=== PATIENT | male | born 1965 | race Caucasian/White ===

== ENCOUNTER 2016-05-29 03:54 | Observation (INO) | payer OTHER ==
[~2016-05-29] VITALS: Ht 180.3 cm; Wt 87.5 kg
--- NOTE | 2016-05-29 03:59 | ED CARDIAC/CP/PALPITATIONS ---
History of Present Illness General Chief Complaint: Chest Pain Stated Complaint: " CP AND RT SHOULDER PAIN SINCE 0230AM" Source: patient Exam Limitations: no limitations Vital Signs & Intake/Output Vital Signs & Intake/Output Vital Signs Date Time Temp Pulse Resp B/P Pulse O2 O2 Flow FiO2 Ox Delivery Rate 05/29 0404 98 Room Air 05/29 0401 97.3 67 18 184/98 98 Room Air Allergies Coded Allergies: NO KNOWN ALLERGIES (05/29/16) Reconcile Medications No Known Home Medications Triage Nurses Notes Reviewed? yes Onset: Abrupt Duration: hour(s): Timing: no prior history Quality/Severity: moderate Location: central, shoulder Radiation: right shoulder Activities at Onset: sleep Prior Chest Pain/Card Workup: no prior chest pain Modifying Factors: Improves With: rest. Aspirin Today: 325 mg x 1, provided at home Associated Symptoms: dizziness HPI: 50 yo gentleman presents with chest pain. He notes that he awoke at 2:30 am with 5/10 substernal chest burning that radiated to his right arm with mild dizziness. Upon arrival to the ED, his chest pain was 4/10. He has no shortness of breath, chills, nausea, vomiting, diarrhea, wheezing. He is otherwise well. Past History Travel History Traveled to [place] past 21 day No Medical History Any Pertinent Medical History? see below for history History of MRSA: No History of VRE: No History of CDIFF: No Surgical History Surgical History: none Psychosocial History Who do you live with Spouse Services at Home None What is your primary language Palauan Family History Comment: brother with [place] at age 62 Hx Contributory? Yes Review of Systems Review of Systems Constitutional: Reports: no symptoms. EENTM: Reports: no symptoms. Respiratory: Reports: no symptoms. Cardiovascular: Reports: no symptoms. GI: Reports: no symptoms. Genitourinary: Reports: no symptoms. Musculoskeletal: Reports: no symptoms. Skin: Reports: no symptoms. Neurological/Psychological: Reports: no symptoms. Hematologic/Endocrine: Reports: no symptoms. Immunologic/Allergic: Reports: no symptoms. All Other Systems: Reviewed and Negative Physical Exam Physical Exam General Appearance: well developed/nourished, mild distress Head: atraumatic, normal appearance Eyes: Bilateral: normal appearance. Ears, Nose, Throat: normal pharynx Neck: normal inspection, supple, full range of motion Respiratory: normal breath sounds, chest non-tender, no respiratory distress, quiet respiration, lungs clear Cardiovascular: regular rate/rhythm Gastrointestinal: normal bowel sounds, soft, non-tender, no organomegaly Back: normal inspection, normal range of motion Extremities: normal inspection Neurologic/Psych: no motor/sensory deficits, awake, alert, oriented x 3 Skin: intact, normal color, warm/dry Core Measures ACS in differential dx? Yes Severe Sepsis Present: No Septic Shock Present: No Progress Differential Diagnosis: AMI, musculoskeletal pain, pneumonia, pulmonary embolism , unstable angina Plan of Care: Orders Procedure Date/time Status Patient Data 05/29 543 Active EKG 05/29 456 Active TROPONIN LEVEL 05/29 355 Complete PARTIAL THROMBOPLASTIN TIME 05/29 355 Complete PROTHROMBIN TIME 05/29 355 Complete D-DIMER 05/29 355 Complete COMPREHENSIVE METABOLIC PANEL 05/29 355 Complete CBC WITHOUT DIFFERENTIAL 05/29 355 Complete B-TYPE NATRIURETIC PEP (BNP) 05/29 355 Complete EKG 05/29 355 Active EKG 05/29 354 Active Laboratory Tests 05/29/16 0400: Anion Gap 14, Estimated GFR > 60, BUN/Creatinine Ratio 14.0, Glucose 99, Calcium 9.3, Total Bilirubin 0.7, AST 32, ALT 71, Alkaline Phosphatase 81, Troponin I < 0.01, Awn-Y-Kjibagmngho Pept 63.3, Total Protein 7.3, Albumin 4.3, Globulin 3.0, Albumin/Globulin Ratio 1.4, PT 10.0, INR 0.95, APTT 30, D-Dimer < 200, CBC w Diff NO MAN DIFF REQ, RBC 5.27, MCV 88.3, MCH 29.7, RDW 12.8, MPV 7.4, Gran % 58.4, Lymphocytes % 31.6, Monocytes % 7.4, Eosinophils % 2.1, Basophils % 0.5, Absolute Granulocytes 4.3, Absolute Lymphocytes 2.3, Absolute Monocytes 0.5, Absolute Eosinophils 0.2, Absolute Basophils 0, PUBS MCHC 33.6 Diagnostic Imaging: Viewed by Me: Radiology Read. Discussed w/RAD: Radiology Read. CXR Impression: no acute abnormality, no infiltrates, normal size heart, normal mediastinum Initial ED EKG: normal axis, normal intervals, normal p-waves, normal QRS complex, normal sinus rhythm Repeat EKG: unchanged Comments: PATIENT: FRANKIE LEROY PRESENT AGE: 50 PATIENT ACCOUNT NO: [id number] : 63 LOCATION: [facility] ORDERING PHYSICIAN: MARY DUNLAP MD SERVICE DATE: 05/29/16 EXAM TYPE: RAD - XRY-PORTABLE CHEST XRAY EXAMINATION: XR PORTABLE CHEST CLINICAL INFORMATION: Chest pain COMPARISON: None. TECHNIQUE: AP portable upright view of the chest FINDINGS: Lung volumes are low. There is bibasilar atelectasis. No consolidation, pneumothorax, or pleural effusion. Cardiac and mediastinal contours are unremarkable. Pulmonary vasculature is unremarkable. Osseous structures are unremarkable. IMPRESSION: No acute cardiopulmonary findings DICTATED BY: SAMUEL RODRIGUEZ MD DATE/TIME DICTATED:05/29/16428 JOGGER OPERATOR:ELIEZER DATE/TIME TRANSCRIBED:05/29/16428 CONFIDENTIAL, DO NOT COPY WITHOUT APPROPRIATE AUTHORIZATION. <Electronically signed in Other Vendor System> SIGNED BY: SAMUEL RODRIGUEZ MD 05/29/16 0434 Departure Departure Disposition: STILL A PATIENT Condition: Stable Clinical Impression Primary Impression: Chest pain Referrals: GIGI ASHFORD DO (PCP/Family) Departure Forms: Customer Survey General Discharge Information Prescriptions: Current Visit Scripts No Known Home Medications Comments 05/29/16, 5:26am... discussed with dr. malhotra... pt feeling better after nitro... merits obs, rule out... pt of dr. ashford... pt to go to hospitalist service. Observation Note Spoke With: ARLIN SIERRA,[facility] Physician Advisor Notified: PIPE PANDA DO Place Patient In: Non-ED OBS Care Area Rationale for Observation: My rational for observation is as follows . pt with nitro responsive chest pain, +family history... merits rule out, cards eval, monitoring. Critical Care Note Critical Care Note Critical Care Time: 30-74 min
--- NOTE | 2016-05-29 04:03 | NUR ---
TRIAGE: PATIENT TO ER FROM HOME REPORTS WOKE FROM SLEEP W/ CHEST BURNING SINCE 229, REPORTS "FEELS LIKE MY THROAT IS TIGHT," AIRWAY PATENT, SPEAKING W/ CLEAR SPEECH. NO ACUTE DISTRESS NOTED. BP IN TRIAGE: 184/98
--- NOTE | 2016-05-29 04:04 | NUR ---
IV EST #20 RIGHT AC BY BIPIN PEREZ. BLOODWORK OBTAINED AND SENT TO LAB (LAV, SST, BLUE, [facility]). EKG IN PROGRESS.
[2016-05-29 04:16] LABS: ABSOLUTE BASOPHIL COUNT 0 /CUMM (0.0-0.2); ABSOLUTE EOSINOPHIL COUNT 0.2 /CUMM (0.0-0.7); ABSOLUTE GRANULOCYTE CT 4.3 /CUMM (1.4-6.5); ABSOLUTE LYMPH COUNT 2.3 /CUMM (1.2-3.4); ABSOLUTE MONOCYTE COUNT 0.5 /CUMM (0.10-0.60); BASOPHIL % 0.5 % (0.0-2.0); EOSINOPHIL % 2.1 % (0-5); GRANULOCYTE % 58.4 % (42.2-75.2); HEMATOCRIT 46.6 % (42-52); MEAN CORPUSCULAR HGB 29.7 PG (27.0-31.0); MEAN CORPUSCULAR HGB CONC 33.6 G/DL (33.0-37.0); MEAN CORPUSCULAR VOLUME 88.3 FL (80.0-94.0); MEAN PLATELET VOLUME 7.4 FL (7.4-10.4); PLATELET COUNT 247 /CUMM (130-400); RBC DISTRIBUTION WIDTH 12.8 % (11.5-14.5); RED BLOOD CELL CT 5.27 /CUMM (4.70-6.10); WHITE BLOOD CELL COUNT 7.4 /CUMM (4.8-10.8)
[2016-05-29 04:27] LABS: PTT 30 SEC (25-37)
--- NOTE | 2016-05-29 04:34 | RADIOLOGY REPORT ---
EXAMINATION: XR PORTABLE CHEST CLINICAL INFORMATION: Chest pain COMPARISON: None. TECHNIQUE: AP portable upright view of the chest FINDINGS: Lung volumes are low. There is bibasilar atelectasis. No consolidation, pneumothorax, or pleural effusion. Cardiac and mediastinal contours are unremarkable. Pulmonary vasculature is unremarkable. Osseous structures are unremarkable. IMPRESSION: No acute cardiopulmonary findings
--- NOTE | 2016-05-29 04:44 | NUR ---
PT MEDICATED WITH 975MG TYLENOLAND 0.4MG NITROSTAT SL PER EMAR FOR CP AND BUENO.
--- NOTE | 2016-05-29 05:26 | NUR ---
PT MEDICATED WITH 0.4MG NITROSTAT AND 30MG IV TORADOL FOR PAIN AND CP PER EMAR.
--- NOTE | 2016-05-29 05:49 | History & Physical ---
LARRY SIERRA,[facility] 05/29/16 0546: General Information and HPI MD Statement: I have seen and personally examined FRANKIE LEROY and documented this H&P. The patient is a 50 year old M who presented with a patient stated chief complaint of Chest pain. Source of Information: patient Exam Limitations: no limitations History of Present Illness: This is a 50-year-old gentleman with no known significant past medical history, on no home medications who presents to the [place] ED with complaints of chest pain. Patient states that he woke au pair around 3 AM study feeling chest pain which he described as substernal burning chest pain that radiated to his right arm. Patient rated his pain as a 5 out of 10 and reports taking 2 tablets of ibuprofen with minimal relief. Patient states that his chest pain was not releived or worsened by any exertion. Pt does deny any associated diaphoresis with this chest pain, dyspnea, palpitation, or dizziness. Patient does endorse an intermittent history of heartburn but denies it happening frequently. Of note, early in the morning patient states that he was using his snowblower clearing the light snow outisde, but he does not endorse any exertional chest pain while doing that activity or or even after completion. At the ED patient receive nitroglycerin sublingual tablets which gave him some relief. Pertinent negatives include no: fever, chills, cough, recent infection, leg pain , recent chest trauma, or use of illicit, smoking history, or remarkable cardiac family history. Allergies/Medications Allergies: Coded Allergies: NO KNOWN ALLERGIES (05/29/16) Past History Travel History Traveled to [place] past 21 day No Medical History Neurological: NONE EENT: NONE Cardiovascular: NONE Respiratory: NONE Gastrointestinal: NONE Hepatic: NONE Renal: NONE Musculoskeletal: NONE Psychiatric: NONE Endocrine: NONE Blood Disorders: NONE Cancer(s): NONE HORSEBACK RIDING INSTRUCTOR/Reproductive: NONE History of MRSA: No History of VRE: No History of CDIFF: No Surgical History Surgical History: none Past Family/Social History Psychosocial History Services at Home: None Review of Systems Review of Systems Constitutional: Denies: diaphoresis, fever, malaise, weakness. EENTM: Denies: blurred vision, double vision, visual changes, eye pain. Cardiovascular: Reports: chest pain. Denies: edema, orthopena, palpitations. Respiratory: Denies: cough, hemoptysis, orthopnea. GI: Denies: constipation, diarrhea, distention, bowel incontinence. Genitourinary: Denies: dysuria, frequency, hematuria, hesitation. Musculoskeletal: Denies: joint pain, muscle pain. Skin: Denies: dryness, jaundice, lesions. Neurological/Psychological: Denies: dementia, emotional problems, headache, numbness, paresthesia. Hematologic/Endocrine: Reports: no symptoms. Immunologic/Allergic: Reports: no symptoms. Exam & Diagnostic Data Last 24 Hrs of Vital Signs/I&O Vital Signs Date Time Temp Pulse Resp B/P Pulse O2 O2 Flow FiO2 Ox Delivery Rate 05/29 2122 76 136/80 05/29 2027 Room Air Room Air 05/29 1619 97.9 60 17 109/66 94 Room Air 05/29 1420 98.4 60 16 120/74 95 Room Air 05/29 1246 97.7 66 15 128/77 94 Room Air Room Air 05/29 1113 97.2 60 20 95 Room Air 05/29 1058 57 142/83 05/29 1048 57 15 142/83 97 Room Air Room Air 05/29 1028 78 20 122/70 98 Room Air 05/29 1026 97.8 58 20 122/70 98 Room Air 05/29 0546 98.6 64 18 113/72 96 Room Air 05/29 0404 98 Room Air 05/29 0401 97.3 67 18 184/98 98 Room Air Intake & Output 05/29 1600 05/29 0800 05/29 0000 Intake Total Output Total Balance Patient 87.543 kg 87.543 kg Weight Physical Exam General Appearance Alert, Oriented X3, Cooperative, No Acute Distress Skin No Rashes, No Breakdown, No Significant Lesion HEENT Atraumatic, PERRLA, EOMI Neck Supple, No JVD, No thryomegaly, +2 Carotid Pulse wo Bruit, No LAD Lymphatic Cervical nl Cardiovascular Regular Rate, Normal S1, Normal S2, No Murmurs, Gallops Lungs Clear to Auscultation, Normal Air Movement Abdomen Normal Bowel Sounds, Soft, No Tenderness, No Hepatospenomegaly, No Masses Neurological Normal Gait, Normal Speech, Strength at 5/5 X4 Ext, Sensation Intact Extremities No Clubbing, No Cyanosis, No Edema, Normal Pulses Vascular Normal Pulses, Pulses Symmetrical Assessment/Plan Assessment: This is a 50-year-old male with no significant past medical history and no cardiovascular risk factors presents with complaints of substernal burning chest pain. Considering that the patient has minimal to no risk of cardiovascular events, couple with negative initial troponins and unremarkable EKG, this is most likely chest pain of noncardiac origin. However completely need to rule out ACS. She would definitely benefit from a stress test which will be done on an outpatient basis. Patient is hemodynamically stable, saturating well and does not show any signs suggestive of pulmonary causes such as PE being responsible for his chest pain. She'll be noted that patient does endorse an intermittent history of heartburn, which might explain the burning nature of his chest pain. Impression #Chest pain Plan * Admit to telemetry for 23 hour monitoring * Will trend serial troponins and EKG to rule out ACS * Echocardiogram in the morning * Will obtain cardiology consult * Will obtain fasting lipid panel * Omeprazole by mouth as needed for heartburn As Ranked By This Provider Problem List: 1. Chest pain Core Measures/Miscellaneous Acute Coronary Syndrome ACS Diagnosis: No Cerebrovascular Accident CVA/TIA Diagnosis: No Congestive Heart Failure CHF Diagnosis: No Venous Thromboembolism VTE Risk Factors: Age > 40 VTE Prophylaxis Ordered Inpt: Mechanical (ALPS/TEDS) No Mech VTE prophylaxis d/t: No contraindications No VTE Pharm Prophylaxis d/t: No contraindications VTE Diagnosis: No VTE Type: NONE VTE Confirmed by (Test): NONE Severe Sepsis Severe Sepsis Present: No Septic Shock Septic Shock Present: No Miscellaneous Documentation Attending Case Discussed With: CLOVER SIERRA,JAY Primary Care Physician: GIGI BENSON DO Patient sees these Specialists NONE Level of Patient Care: Telemetry MARIO FLOYD 05/29/16 0612: General Information and HPI Allergies/Medications Home Med list Omeprazole 40 MG CAPSULE.DR Plunkett CAP PO DAILY heartburn Resident Review Statement Resident Statement: examined this patient, discussed with sports management internship, agreed with sports management internship, reviewed EMR data (avail) Other Findings: This is a 50-year-old gentleman with no significant past medical history, on no home medications who presents to the hospital with substernal chest pain which radiated to his right arm. Patient reports experiencing reflux symptoms but very rarely. Denies headache, nausea, vomiting, dizziness, lightheadedness, shortness of breath, palpitation, abdominal pain, urinary symptoms. Of note, the patient mentions that he used snowblower machine couple of days ago and might have s pulled his right-sided chest muscles while using the machine. His last workup with his PCP was 3 years ago. Patient denies tobacco, EtOH, illicit drug use. I confirmed with patient, he denies taking any aspirin today. He took ibuprofen for pain. His pain subsided after receiving nitroglycerin in the ED. Vital signs on admission: Temperature 97.3, pulse rate 67, respiratory rate 18, blood pressure 184/98>>>113/72, oxygen saturation 98% on room air. Pertinent physical exam at the time of admission: NAD, AAO 3, head atraumatic, normocephalic, PERRLA, EOMI, normal pharynx. Neck: Supple, no JVD, no LAD. Cardiovascular: S1-S2 auscultated, no murmurs. Lungs: CTA BL. Abdomen: Normal bowel sounds, Soft, nontender, nondistended. No lower extremity edema. Pulses normal and symmetrical. Normal reflexes. Neurology exam nonfocal. Pertinent lab data on admission: CBC unremarkable, BEP unremarkable, troponin negative. D-dimer negative. Pertinent imaging: Normal chest x-ray. EKG: Sinus rhythm, rate 78, no ST-T wave abnormalities. QTC 438 Problem list/plan: #Chest pain: * Rule out ACS * ASUNCION score: Patient less than 65-year-old, does not have to use factors for CAD, does not have known history of CAD, has not used aspirin in the past 7 days , did not experience severe angina more than twice within the past 24 hours, EKG did not reveal ST deviation, cardiac marker so far negative therefore patient has ASUNCION score of 0. * monitoring and evaluation advisor * Vitals per protocol * Oxygen supplementation as needed * Adequate pain management * Nitrates his chest pain persists(it was given in the ED) * Aspirin 3251(patient is not on aspirin at home and did not take any aspirin today) * Continue aspirin 81 mg daily from tomorrow * Statin, beta robina * Lipid panel, TFT, hemoglobin A1c * Omeprazole for reflux symptoms * Echocardiogram * Cardiology consult #DVT prophylaxis #Patient is full code JAY SIERRA,CLOVER 05/29/16 1302: Attending Review Statement Attending Statement Attending Statement: examined this patient, discuss w/resident/PA/TERRAZZO WORKER HELPER, agreed w/resident/PA/TERRAZZO WORKER HELPER, discussed with family, reviewed EMR data (avail) Attending Assessment/Plan: Patient seen and examined in the emergency room. Plan of care discussed with patient's at the bedside. Case discussed with the admitting resident. In summary this is a 50-year-old gentleman with no significant past medical history, on no home medications who presents to the hospital with substernal chest pain which radiated to his right arm. He is a nonsmoker and does not drink alcohol. Recently had increased job stress at work. Also reports occasional GERD-like symptoms. Vital signs are stable. Exam is essentially unremarkable. There is no chest tenderness. Right shoulder movement is intact. Labs are unremarkable and troponin is negative. EKG does not show any acute ST or T-wave changes. Assessment * Chest pain rule out ND * Suspected GERD Plan * Observe for 23 hour in telemetry * Troponin 3 sets * Repeat EKG * Echocardiogram and cardiology consult * If troponins remain negative and EKG stable patient likely will be discharged home tomorrow * He likely will need outpatient stress test. Note the patient had a stress test about 20 years ago which was negative. ARLIN SIERRA, [facility] 05/30/16 0604: Addendum Addendum Admitted by Dr. Salvador.
--- NOTE | 2016-05-29 06:16 | NUR ---
PT MEDICATED WITH 325MG ASA PER EMAR PER HOUSE STAFF.
--- NOTE | 2016-05-29 07:37 | NUR ---
ASSUMED CARE OF PT WHO IS A&O X3, NAD. PT DENIES CP AT THIS TIME. PT MEDICATED WITH 40 MG PRILOSEC PO. OF PT AT BEDSIDE. WAITING FOR ADMISSION BED. WILL CTM
--- NOTE | 2016-05-29 08:24 | NUR ---
BREAKFAST TRAY ORDERED FOR PT
--- NOTE | 2016-05-29 09:01 | NUR ---
PT GIVEN BREAKFAST TRAY
[2016-05-29 10:28] VITALS: BP 122/70
--- NOTE | 2016-05-29 10:28 | NUR ---
PT AMBULATED TO BATHROOM WITH STEADY GAIT AND NO ACUTE DISTRESS NOTED.
--- NOTE | 2016-05-29 10:48 | NUR ---
HOUSE STAFF TEXT-PAGED IN REGARDS TO LOPRESSOR AND PT'S HR. AWAITING CALL BACK.
--- NOTE | 2016-05-29 11:51 | NUR ---
PT PROVIDED FOOD TRAY. CONSUMED 100%. AT BEDSIDE.
--- NOTE | 2016-05-29 12:42 | NUR ---
PATIENT ASSIGNED TO ROOM 171
--- NOTE | 2016-05-29 13:18 | NUR ---
NURSE WILL CALL BACK FOR REPORT.
--- NOTE | 2016-05-29 13:30 | NUR ---
REPORT GIVEN TO JASWANT PEREZ. ROOM NOT CLEAN YET; HOSPICE COMMUNITY LIAISON WILL CALL WHEN BED IS READY.
[2016-05-29 14:20] VITALS: BP 120/74
--- NOTE | 2016-05-29 14:31 | NUR ---
ADMISSION NOTE: PT A&OX3 ON RA. PT ORIENTED TO ROOM. CALL PAUL IN REACH. VSS. PT PLACED ON TELE MONITOR NSR 70'S. [facility] PT HAS NO CHEST PAIN AT THIS TIME. NO SOB SKIN INTACT NO EDEMA. INDEPENDENT TO BATHROOM AND IN ROOM. PT HAS NO COMPLAINTS AT THIS TIME, WILL CONTINUE TO MONITOR.
--- NOTE | 2016-05-29 15:08 | Cons- Cardiology ---
General Information and HPI Consulting Request Date of Consult: 05/29/16 Requested By: ARLIN SIERRA,CHIVO Reason for Consult: Prolonged chest pain in a 50-year-old male Source of Information: patient, old records Exam Limitations: no limitations History of Present Illness: The patient is a 50-year-old male with no known heart disease. He is not hypertensive and does not have dyslipidemia and essentially takes no medications at home. Last night he developed lower to mid sternal chest burning with some discomfort in his right arm and after a few hours he came to the emergency department. There he was given SL nitroglycerin which did seem to help the discomfort. He did not have any acute EKG changes. He denies any previous history of chest pain. He notes he was doing some heavy work with a snowblower a couple of days prior. He does not describe chest pain on exertion, shortness of breath, palpitations, dizziness, syncope. He is a nonsmoker. Currently he feels very well. He's not had any recurrent pain since early this morning. Allergies/Medications Allergies: Coded Allergies: NO KNOWN ALLERGIES (05/29/16) Home Med List: No Known Home Medications Current Medications: Current Medications Sig/Leti Start time Last Medication Dose Route Stop Time Status Admin Acetaminophen 975 MG ONCE ONE 05/29 444 DC 05/29 PO 05/29 445 044 Acetaminophen 0 .STK-MED ONE 05/29 441 DC PO Aspirin 325 MG ONCE ONE 05/29 614 DC 05/29 PO 05/29 0516 0615 Aspirin 0 .STK-MED ONE 05/29 0515 DC PO Atorvastatin Calcium 80 MG 1700 05/29 1700 AC PO Ketorolac 30 MG ONCE ONE 05/29 529 DC 05/29 Tromethamine IV 05/29 530 0526 Ketorolac 0 .STK-MED ONE 05/29 0423 DC Tromethamine .ROUTE Metoprolol Tartrate 6.25 MG BID 05/29 1000 AC PO Nitroglycerin 0.4 MG ONCE ONE 05/29 529 DC 05/29 SL 05/29 530 05 Nitroglycerin 0.4 MG ONCE ONE 05/29 444 DC 05/29 SL 05/29 445 0444 Nitroglycerin 0 .STK-MED ONE 05/29 441 DC SL Omeprazole 0 .STK-MED ONE 05/29 0636 DC PO Omeprazole 40 MG DAILY AC 05/29 0645 AC 05/29 PO 0737 Review of Systems Review of Systems: He has no complaints in the review of systems. Past History Travel History Traveled to [place] past 21 day No Medical History Blood Transfusion Hx: No Neurological: NONE EENT: NONE Cardiovascular: NONE Respiratory: NONE Gastrointestinal: NONE Hepatic: NONE Renal: NONE Musculoskeletal: NONE Psychiatric: NONE Endocrine: NONE Blood Disorders: NONE Cancer(s): NONE MINE MANAGER/Reproductive: NONE Surgical History Surgical History: 1 Psychosocial History Services at Home: None Smoking Status: Never Smoked Exam & Diagnostic Data Vital Signs and I&O Vital Signs Date Time Temp Pulse Resp B/P Pulse O2 O2 Flow FiO2 Ox Delivery Rate 05/29 1420 98.4 60 16 120/74 95 Room Air 05/29 1246 97.7 66 15 128/77 94 Room Air Room Air 05/29 1113 97.2 60 20 95 Room Air 05/29 1058 57 142/83 05/29 1048 57 15 142/83 97 Room Air Room Air 05/29 1028 78 20 122/70 98 Room Air 05/29 1026 97.8 58 20 122/70 98 Room Air 05/29 0546 98.6 64 18 113/72 96 Room Air 05/29 0404 98 Room Air 05/29 0401 97.3 67 18 184/98 98 Room Air Intake & Output 05/29 1600 05/29 0805/29 0000 05/28 1600 05/28 0800 05/28 0000 Intake Total Output Total Balance Patient 193 lb 193 lb Weight Physical Exam: On physical he is well-developed well-nourished male in no acute distress HEENT exam is normal Neck veins not distended Carotids normal Chest clear Heart regular rhythm no murmurs gallops or rubs Abdomen benign Extremities reveal good pulses and no edema Neurologic intact Labs/[place] Results: Laboratory Tests 05/29 05/29 05/29 1012 0400 0356 Chemistry Sodium (137 - 145 mmol/L) 143 Potassium (3.5 - 5.1 mmol/L) 3.9 Chloride (98 - 107 mmol/L) 101 Carbon Dioxide (22 - 30 mmol/L) 28 Anion Gap (5 - 16) 14 BUN (9 - 20 mg/dL) 14 Creatinine (0.7 - 1.2 mg/dL) 1.0 Estimated GFR (>60 ml/min) > 60 BUN/Creatinine Ratio (7 - 25 %) 14.0 Glucose (65 - 99 mg/dL) 99 Hemoglobin A1c Pending Calcium (8.4 - 10.2 mg/dL) 9.3 Total Bilirubin (0.2 - 1.3 mg/dL) 0.7 AST (17 - 59 U/L) 32 ALT (21 - 72 U/L) 71 Alkaline Phosphatase (< 127 U/L) 81 Troponin I (<0.11 ng/ml) < 0.01 < 0.01 [id number]-[id number] Pept (<125 pg/mL) 63.3 Total Protein (6.3 - 8.2 g/dL) 7.3 Albumin (3.5 - 5.0 g/dL) 4.3 Globulin (1.9 - 4.2 gm/dL) 3.0 Albumin/Globulin Ratio (1.1 - 2.2 %) 1.4 Triglycerides (<150 mg/dL) 178 H Cholesterol (< 200 MG/DL) 163 LDL Cholesterol, Calc (65 - 129 mg/dL) 88 HDL Cholesterol (40 - 60 mg/dL) 40 Cholesterol/HDL Ratio (0.00 - 4.88 %) 4 TSH (0.270 - 4.200 uIU/mL) 2.610 Coagulation PT (9.4 - 12.5 SEC) 10.0 INR (0.90 - 1.17) 0.95 APTT (25 - 37 SEC) 30 D-Dimer (70 - 232 ng/ml) < 200 Hematology CBC w Diff NO MAN DIFF REQ WBC (4.8 - 10.8 /CUMM) 7.4 RBC (4.70 - 6.10 /CUMM) 5.27 Hgb (14.0 - 18.0 G/DL) 15.6 Hct (42 - 52 %) 46.6 MCV (80.0 - 94.0 FL) 88.3 MCH (27.0 - 31.0 PG) 29.7 RDW (11.5 - 14.5 %) 12.8 Plt Count (130 - 400 /CUMM) 247 MPV (7.4 - 10.4 FL) 7.4 Gran % (42.2 - 75.2 %) 58.4 Lymphocytes % (20.5 - 51.1 %) 31.6 Monocytes % (1.7 - 9.3 %) 7.4 Eosinophils % (0 - 5 %) 2.1 Basophils % (0.0 - 2.0 %) 0.5 Absolute Granulocytes (1.4 - 6.5 /CUMM) 4.3 Absolute Lymphocytes (1.2 - 3.4 /CUMM) 2.3 Absolute Monocytes (0.10 - 0.60 /CUMM) 0.5 Absolute Eosinophils (0.0 - 0.7 /CUMM) 0.2 Absolute Basophils (0.0 - 0.2 /CUMM) 0 PUBS MCHC (33.0 - 37.0 G/DL) 33.6 Diagnostic Data EKG Results He has had several EKGs all of which show sinus rhythm in a normal range. He has borderline voltage for LVH but no secondary ST-T wave abnormalities. CXR Results PATIENT: FRANKIE LEROY PRESENT AGE: 50 PATIENT ACCOUNT NO: [id number] : 63 LOCATION: [facility] ([facility] ORDERING PHYSICIAN: MARY DUNLAP MD SERVICE DATE: 05/29/16 EXAM TYPE: RAD - XRY-PORTABLE CHEST XRAY EXAMINATION: XR PORTABLE CHEST CLINICAL INFORMATION: Chest pain COMPARISON: None. TECHNIQUE: AP portable upright view of the chest FINDINGS: Lung volumes are low. There is bibasilar atelectasis. No consolidation, pneumothorax, or pleural effusion. Cardiac and mediastinal contours are unremarkable. Pulmonary vasculature is unremarkable. Osseous structures are unremarkable. IMPRESSION: No acute cardiopulmonary findings DICTATED BY: SAMUEL RODRIGUEZ MD DATE/TIME DICTATED:05/29/16428 ENGRAVER MACHINE:ELIEZER DATE/TIME TRANSCRIBED:05/29/16428 CONFIDENTIAL, DO NOT COPY WITHOUT APPROPRIATE AUTHORIZATION. <Electronically signed in Other Vendor System> SIGNED BY: SAMUEL RODRIGUEZ MD 05/29/16 0434 Assessment/Plan Assessment/Plan The patient is a 50-year-old man with an episode of chest pain which lasted a few hours and was relieved by nitroglycerin. However he has no EKG changes and totally negative troponins so far. This suggests that the pain was noncardiac. I would continue his rule out regimen. If it continues to be negative and he has no further pain, EKG changes or arrhythmias then he can be discharged in the a.m. I have suggested an outpatient stress test which we can arrange on discharge. I note that he was started on high-dose statin. His lipids are actually quite favorable at baseline and if the workup continues to be negative he will not need to go home on a statin. Consult Acknowledgment - Thank you for your consult request.
[2016-05-29 16:19] VITALS: BP 109/66
[2016-05-29 23:00] VITALS: BP 136/80
[2016-05-30 08:22] VITALS: BP 143/74
[2016-05-30 09:39] VITALS: BP 134/80
--- NOTE | 2016-05-30 12:03 | PN- Cardiology ---
Subjective Subjective: The patient continues to be asymptomatic. His enzymes are negative 3. He remains in sinus rhythm on the monitor with no significant arrhythmias. Objective Vital Signs and I&Os Vital Signs Date Time Temp Pulse Resp B/P Pulse O2 O2 Flow FiO2 Ox Delivery Rate 05/30 0939 80 134/80 05/30 0822 98.5 70 16 143/74 93 Room Air 05/29 2300 98.3 76 18 136/80 95 Room Air 05/29 2123 76 136/80 05/29 2028 Room Air Room Air 05/29 1619 97.9 60 17 109/66 94 Room Air 05/29 1420 98.4 60 16 120/74 95 Room Air 05/29 1246 97.7 66 15 128/77 94 Room Air Room Air Intake & Output 05/30 1600 05/30 0000 05/29 1600 05/29 0000 Intake Total 50 500 Output Total Balance 50 500 Intake, Oral 50 500 Patient 193 lb 193 lb Weight Physical Exam: His physical exam is normal today Current Medications: Current Medications Sig/Leti Start time Last Medication Dose Route Stop Time Status Admin Acetaminophen 650 MG ONCE ONE 05/29 1630 DC 05/29 PO 05/29 1631 1623 Aspirin 81 MG DAILY 05/30 1000 AC 05/30 PO 0938 Atorvastatin Calcium 80 MG 1700 05/29 1700 AC 05/29 PO 1615 Metoprolol Tartrate 6.25 MG BID 05/29 1000 AC 05/30 PO 0939 Omeprazole 40 MG DAILY AC 05/29 0645 AC 05/30 PO 0646 Results Last 48 Hrs of Labs/Mics: Laboratory Tests 05/29/16 1643: Troponin I < 0.01 05/29/16 1012: Troponin I < 0.01 05/29/16 0400: Anion Gap 14, Estimated GFR > 60, BUN/Creatinine Ratio 14.0, Glucose 99, Calcium 9.3, Total Bilirubin 0.7, AST 32, ALT 71, Alkaline Phosphatase 81, Troponin I < 0.01, Raj-B-Dufofnlprpr Pept 63.3, Total Protein 7.3, Albumin 4.3, Globulin 3.0, Albumin/Globulin Ratio 1.4, Triglycerides 178 H, Cholesterol 163, LDL Cholesterol, Calc 88, HDL Cholesterol 40, Cholesterol/HDL Ratio 4, TSH 2.610, PT 10.0, INR 0.95, APTT 30, D-Dimer < 200, CBC w Diff NO MAN DIFF REQ, RBC 5.27, MCV 88.3, MCH 29.7, RDW 12.8, MPV 7.4, Gran % 58.4, Lymphocytes % 31.6, Monocytes % 7.4, Eosinophils % 2.1, Basophils % 0.5, Absolute Granulocytes 4.3, Absolute Lymphocytes 2.3, Absolute Monocytes 0.5, Absolute Eosinophils 0.2, Absolute Basophils 0, PUBS MCHC 33.6 05/29/16 0356: Hemoglobin A1c Pending Assessment/Plan Assessment/Plan The patient is stable. His cardiac evaluation was negative. He can be discharged home. I would recommend discharging him on Prilosec alone. He does not need atorvastatin or metoprolol or even aspirin at this point. We will arrange for him to have a stress test as an outpatient. Continue telemetry? Not applicable
[2016-05-30] MEDS ORDERED: OMEPRAZOLE40 M1 PO (12:14)
--- NOTE | 2016-05-30 12:16 | Patient Discharge Instructions ---
Discharge Instructions General Discharge Information Special Instructions: please follow up with PCP with in one week after discharge please follow up with cardiology Dr. Armenta for stress test as an outpatient Acute Coronary Syndrome Inclusion Criteria At DC or during hospital stay patient has or had the following: ACS DIAGNOSIS No Discharge Core Measures Meds if any: Prescribed or Continued at Discharge Meds if any: NOT Prescribed or Continued at Discharge Congestive Heart Failure Inclusion Criteria At DC or during hospital stay patient has or had the following: CHF DIAGNOSIS No Discharge Core Measures Meds if any: Prescribed or Continued at Discharge Meds if any: NOT Prescribed or Continued at Discharge Cerebrovascular accident Inclusion Criteria At DC or during hospital stay patient has or had the following: CVA/TIA Diagnosis No Discharge Core Measures Meds if any: Prescribed or Continued at Discharge Meds if any: NOT Prescribed or Continued at Discharge Venous thromboembolism Inclusion Criteria VTE Diagnosis No VTE Type NONE VTE Confirmed by (Test) NONE Discharge Core Measures - Per Current guidelines, there needs to be overlap - treatment for the first 5 days of Warfarin therapy. - If discharged on Warfarin prior to 5 days of - overlap therapy, the patient will need to be - assessed for post discharge needs including - *Post discharge parental anticoagulation - *Warfarin and/or parental anticoagulation education - *Follow up date to check INR post discharge At least 5 days overlap therapy as Inpatient Yes Meds if any: Prescribed or Continued at Discharge Note: Overlap Therapy is Warfarin and Anticoagulant Meds if any: NOT Prescribed or Continued at Discharge
--- NOTE | 2016-05-30 12:40 | PN- Att Addend ---
Attending Addendum Attending Brief Note Patient seen and examined. Plan of care discussed with the medical team and the patient. Available lab work and radiology test reports were reviewed. Patient chest pain has resolved. He has no new complaints. Vital Signs Date Time Temp Pulse Resp B/P Pulse O2 O2 Flow FiO2 Ox Delivery Rate 05/30 0939 80 134/80 05/30 0722 98.5 70 16 143/74 93 Room Air 05/29 2300 98.3 76 18 136/80 95 Room Air 05/29 2123 76 136/80 05/29 2028 Room Air Room Air 05/29 1619 97.9 60 17 109/66 94 Room Air 05/29 1420 98.4 60 16 120/74 95 Room Air 05/29 1246 97.7 66 15 128/77 94 Room Air Room Air Intake & Output 05/30 1600 05/30 0800 05/30 0000 Intake Total 50 500 Output Total Balance 50 500 Intake, Oral 50 500 Exam: General: Patient awake alert oriented without any distress CVS: S1 plus S2 without any murmur or gallops Chest: Clear lungs without any wheeze. There is no respiratory distress. Abdomen: Soft nontender, bowel sound present, no guarding or rebound JOURNEYMAN GLAZIER: Awake alert oriented without any focal neuro deficit and follows command appropriately Extremities: No edema; no clubbing or cyanosis noted Laboratory Tests 05/29 1643 Chemistry Troponin I (<0.11 ng/ml) < 0.01 Repeat EKG shows normal sinus rhythm and no ST-T wave changes. Echogram report is pending. Assessment * Chest pain rule out PA * Suspected GERD Plan * Follow-up Echocardiogram report * patient likely will be discharged home tomorrow; cardiology to review echo. If echo is within normal limits patient may not need aspirin or Lipitor. * He should take Prilosec 20 mg daily for 2 weeks. * He likely will need outpatient stress test. *
--- NOTE | 2016-05-30 13:25 | ECHOCARDIOGRAM REPORT ---
FRANKIE LEROY Age: 50 : 1965 Gender: M Exam Date: 05/30/2016 09:44 Exam Location: [address] Ht (in): 71 Wt (lb): 193 BSA: 2.11 BP: 143 / 74 Ordering Physician: KANDI FLOYD, Referring Physician: Abad Armenta MD Chief, SoC Technologist: Lisa Verduzco [facility] Room Number: [id number] Indications: CHEST PAIN Rhythm: Sinus Technical Quality: Good FINDINGS Left Ventricle Normal left ventricular size, wall thickness and systolic function with no obvious regional wall motion abnormalities. Normal left ventricular diastolic filling pattern for age. The ejection fraction is visually estimated at >65 %. Right Ventricle The right ventricle is normal in size and function. Right Atrium The right atrium is normal in size. Left Atrium The left atrium is normal in size. The interatrial septum is intact. Mitral Valve The mitral valve is normal in structure and function. There is trace to mild mitral regurgitation. Aortic Valve Focal thickening of the aortic valve cusps. No aortic stenosis. Trace to mild aortic regurgitation. Tricuspid Valve The tricuspid valve is normal in structure and function. There is no tricuspid regurgitation. Pulmonic Valve Structurally normal pulmonic valve. There is pulmonic regurgitation. Pericardium Normal pericardium without effusion. No pleural effusion. Great Vessels Normal aortic root dimension. The aortic arch and great vessels are well seen and are normal. CONCLUSIONS Normal left ventricular size, wall thickness and systolic function with no obvious regional wall motion abnormalities. The mitral valve is normal in structure and function. Focal thickening of the aortic valve cusps. No aortic stenosis. Trace to mild aortic regurgitation. Abad Armenta M.D. (Electronically Signed) Final Date: 30 May 2016 13:24 MEASUREMENTS (Male / Female) Normal Values 2D ECHO LV Diastolic Diameter PLAX 4.8 cm 4.2 - 5.9 / 3.9 - 5.3 cm LV Systolic Diameter PLAX 2.7 cm 2.1 - 4.0 cm LV Fractional Shortening PLAX 43.8 % 25 - 46 % LV Ejection Fraction 2D Teich 74.9 % IVS Diastolic Thickness 0.9 cm LVPW Diastolic Thickness 0.8 cm LV Relative Wall Thickness 0.4 RV Internal Dim ED PLAX 2.4 cm 1.9 - 3.8 cm LVOT Diameter 2.2 cm Aortic Root Diameter 2.8 cm LA Systolic Diameter LX 3.0 cm 3.0 - 4.0 / 2.7 - 3.8 cm LA Volume 44.0 cm 18 - 58 / 22 - 52 cm Ascending Aorta Diameter 3.0 cm DOPPLER AV Peak Velocity 184.0 cm/s AV Peak Gradient 13.5 mmHg AV Mean Velocity 129.0 cm/s AV Mean Gradient 7.0 mmHg AV Velocity Time Integral 38.6 cm LVOT Peak Velocity 107.0 cm/s LVOT Peak Gradient 4.6 mmHg LVOT Mean Velocity 76.2 cm/s LVOT Mean Gradient 3.0 mmHg LVOT Velocity Time Integral 21.6 cm LVOT Stroke Volume 82.1 cm AV Area Cont Eq vti 2.1 cm AV Area Cont Eq pk 2.2 cm MV Peak Velocity 98.2 cm/s MV Peak Gradient 3.9 mmHg MV Mean Velocity 63.0 cm/s MV Mean Gradient 2.0 mmHg Mitral E Point Velocity 71.1 cm/s Mitral A Point Velocity 82.4 cm/s Mitral E to A Ratio 0.9 MV PHT Velocity 86.3 cm/s MV Deceleration [place] 236.0 cm/s MV Pressure Half Time 109.7 ms MV Area PHT 2.0 cm MV Deceleration Time 193.0 ms PV Peak Velocity 127.0 cm/s PV Peak Gradient 6.5 mmHg PV Mean Velocity 86.4 cm/s PV Mean Gradient 3.0 mmHg PV Velocity Time Integral 23.4 cm LV E' Lateral Velocity 7.1 cm/s Mitral E to LV E' Lateral Ratio 10.0 LV E' Septal Velocity 8.4 cm/s Mitral E to LV E' Septal Ratio 8.5
--- NOTE | 2016-05-30 14:34 | PN- Housestaff ---
Subjective Follow-up For: chest pain Subjective: Patient was seen and examined. He had no overnight events. Patient rico not complain of any episodes of chest pain or chest discomfort. He is for discharge today. Review of Systems Constitutional: Denies: no symptoms. Objective Last 24 Hrs of Vital Signs/I&O Vital Signs Date Time Temp Pulse Resp B/P Pulse O2 O2 Flow FiO2 Ox Delivery Rate 05/30 0939 80 134/80 05/30 08 98.5 70 16 143/74 93 Room Air 05/29 2300 98.3 76 18 136/80 95 Room Air 05/29 2123 76 136/80 05/29 2027 Room Air Room Air 05/29 1619 97.9 60 17 109/66 94 Room Air Intake & Output 05/30 1600 05/30 0805/30 0000 Intake Total 720 50 500 Output Total Balance 720 50 500 Intake, Oral 720 50 500 Physical Exam General Appearance: Alert, Oriented X3, Cooperative, No Acute Distress HEENT: PERRLA, EOMI Neck: Supple, No JVD, No LAD Cardiovascular: Regular Rate, Normal S1, Normal S2, No Murmurs Lungs: Clear to Auscultation, Normal Air Movement Abdomen: Normal Bowel Sounds, Soft, No Tenderness Neurological: Normal Gait, Normal Speech, Strength at 5/5 X4 Ext, Normal Tone, Sensation Intact, Cranial Nerves 3-12 NL, Reflexes 2+ Extremities: No Clubbing, No Cyanosis, No Edema, Normal Pulses, No Tenderness/ Swelling Vascular: Normal Pulses Assessment/Plan Assessment: This is a 50-year-old male with no significant past medical history and no cardiovascular risk factors presents with complaints of substernal burning chest pain. Considering that the patient has minimal to no risk of cardiovascular events, couple with negative initial troponins and unremarkable EKG, this is most likely chest pain of noncardiac origin. However completely need to rule out ACS. She would definitely benefit from a stress test which will be done on an outpatient basis. Patient is hemodynamically stable, saturating well and does not show any signs suggestive of pulmonary causes such as PE being responsible for his chest pain. She'll be noted that patient does endorse an intermittent history of heartburn, which might explain the burning nature of his chest pain. Impression #Chest pain Plan * serial troponins and EKG ruled out ACS * Echocardiogram normal with EF> 65% * cardiology was consulted * Omeprazole 40 daily * patient is for dischrge on Omeprazole 40 daily Problem List: 1. Chest pain Pain Ratin Pain Location: n/a Pain Goal: Remain pain free Pain Plan: see mediaction Tomorrow's Labs & Rationales: n/a
== END 2016-05-30 14:50 ==
LOC: ERH 03:54 → ERHI 05:44 → 1NO 05:44 → ERHI 05:44 → 1NO 14:00
PROVIDERS: Pediatrics; ADMIT Student in an Organized Health Care Education/Training Program
DX: R07.89 Other chest pain (principal)
CPT/HCPCS: 2000; 93005; 93010; 93306; 96374; G0378; J1885; J3490